=== PATIENT | male | born 1950 | race Caucasian/White ===

== ENCOUNTER 2017-04-04 06:05 | Emergency (ER) | payer MEDICARE ==
[~2017-04-04] VITALS: Ht 180.3 cm; Wt 127.0 kg
[2017-04-04 07:18] LABS: HEMOGLOBIN 14.8 g/dl (14.0-18.0); IMMATURE GRANULOCYTES 0.6 % (0.0-1.0); MEAN CELL VOLUME 91.7 fL CALC (80.0-100.0); MEAN CORPUSCULAR HGB 30.8 pG CALC (26.0-32.0); MEAN CORPUSCULAR HGB CONC 33.6 g/L CALC (32.0-36.0); NEUT# 4.56 thou/uL (1.82-7.42); RED BLOOD COUNT 4.8 mill/uL (4.70-6.10); RED CELL DISTRI WIDTH 13.2 % (11.5-15.5)
[2017-04-04 07:32] LABS: ALBUMIN 4.2 g/dL (3.2-5.0); ALKALINE PHOSPHATASE 66 u/l (38-126); ANION GAP 19 (6-22 (CALC)); BILIRUBIN, TOTAL 0.9 mg/dL (0.0-1.4); BUN 16 mg/dL (8-23); BUN/CREATININE RATIO 18 (12-20 (CALC)); CALCIUM 9.2 mg/dL (8.4-10.2); CARBON DIOXIDE 25 mmol/l (22-30); CHLORIDE 104 mmol/l (95-108); CREATININE 0.9 mg/dL (0.7-1.3); GFR > 60 ML/MIN (>=60 (CALC)); GFR FOR AFR.AMER. > 60 ML/MIN (>=60 (CALC)); GLUCOSE 139 mg/dL (82-115); POTASSIUM 4.2 mmol/l (3.5-5.1); SGOT/AST 49 u/l (19-48); SGPT/ALT 92 u/l (11-66); SODIUM 143 mmol/l (137-146)
[2017-04-04] MEDS ORDERED: BACTRIM DS1 TAB PO (07:40)
[2017-04-04 07:43] VITALS: BP 142/80
[2017-04-04] MEDS ORDERED: METFORMIN500 MG PO (07:45)
[2017-04-04] MEDS ORDERED: HYDROCHLOROT12.5 M1 PO (07:46)
[2017-04-04] MEDS ORDERED: ATENOLOL25 MG PO (07:46)
== END 2017-04-04 07:55 | disposition home or self-care (01) | DRG 603 ==
LOC: ED 06:05
PROVIDERS: Emergency Medicine
DX: L03.116 Cellulitis of left lower limb (principal); I10 Essential (primary) hypertension; R73.03 Prediabetes

== ENCOUNTER 2021-09-13 08:03 | Emergency (ER) | payer MEDICARE ==
[~2021-09-13] VITALS: Ht 180.3 cm; Wt 127.0 kg
[~2021-09-13 08:03] MED LIST: ATENOLOL25 MG PO; BACTRIM DS1 TAB PO; HYDROCHLOROT12.5 M1 PO; METFORMIN500 MG PO
[2021-09-13 08:58] LABS: HEMATOCRIT 43.2 % (39.0-50.0); HEMOGLOBIN 14.1 g/dl (14.0-18.0); IMMATURE GRANULOCYTES 0.5 % (0.0-5.0); MEAN CELL VOLUME 94.1 fL CALC (80.0-100.0); MEAN CORPUSCULAR HGB 30.7 pG CALC (26.0-32.0); MEAN CORPUSCULAR HGB CONC 32.6 g/dL CAL (32.0-36.0); NEUT# 3.38 thou/uL (1.82-7.42); RED BLOOD COUNT 4.59 mill/uL (4.70-6.10); RED CELL DISTRI WIDTH 13.5 % (11.5-15.5)
[2021-09-13 09:06] LABS: ALBUMIN 4.3 g/dL (3.2-5.0); ALKALINE PHOSPHATASE 78 u/l (38-126); ANION GAP 16 (6-22 (CALC)); BILIRUBIN, TOTAL 0.8 mg/dL (0.0-1.4); BUN 19 mg/dL (8-23); BUN/CREATININE RATIO 21 (12-20 (CALC)); CARBON DIOXIDE 24 mmol/l (22-30); CHLORIDE 104 mmol/l (95-108); CREATININE 0.9 mg/dL (0.7-1.3); GFR > 60 ML/MIN (>=60 (CALC)); GFR FOR AFR.AMER. > 60 ML/MIN (>=60 (CALC)); POTASSIUM 4.1 mmol/l (3.5-5.1); SGOT/AST 67 u/l (19-48); SODIUM 140 mmol/l (137-146); TOTAL PROTEIN 7.3 g/dL (6.3-8.2)
[2021-09-13] MEDS ORDERED: KEFLEX500 MG PO (10:37)
[2021-09-13 10:49] VITALS: BP 171/93
== END 2021-09-13 10:45 | disposition home or self-care (01) ==
LOC: ED 08:03
DX: S90.512A Abrasion, left ankle, initial encounter (principal); L03.116 Cellulitis of left lower limb; S93.402A Sprain of unspecified ligament of left ankle, initial encounter; E11.9 Type 2 diabetes mellitus without complications; I10 Essential (primary) hypertension; W01.0XXA Fall on same level from slipping, tripping and stumbling without subsequent striking against object, initial encounter; Y92.828 Other wilderness area as the place of occurrence of the external cause; Z79.84 Long term (current) use of oral hypoglycemic drugs

== ENCOUNTER 2022-07-14 09:53 | Day surgery (SDC) | payer MEDICARE ==
[~2022-07-14] VITALS: Ht 180.3 cm; Wt 127.0 kg
[~2022-07-14 09:53] MED LIST changes: +ATORVASTATIN CA10 MG PO; +KEFLEX500 MG PO; +LOSARTAN POTASS25 MG PO
[2022-07-14 12:53] VITALS: BP 168/84
== END 2022-07-14 14:00 | disposition home or self-care (01) ==
LOC: ENDO 09:53 → ORM 12:30 → ENDO 12:50 → ORM 14:30
PROVIDERS: ATTEND Internal Medicine Gastroenterology
PROC: 0DBH8ZX Excision of Cecum, Via Natural or Artificial Opening Endoscopic, Diagnostic (ICD-10-PCS; principal; 2022-07-14)
PROC: 0DBL8ZX Excision of Transverse Colon, Via Natural or Artificial Opening Endoscopic, Diagnostic (ICD-10-PCS; 2022-07-14)
DX: D12.0 Benign neoplasm of cecum (principal); D12.3 Benign neoplasm of transverse colon; K64.8 Other hemorrhoids; I10 Essential (primary) hypertension; E11.9 Type 2 diabetes mellitus without complications; Z79.84 Long term (current) use of oral hypoglycemic drugs; Z80.0 Family history of malignant neoplasm of digestive organs